=== PATIENT | female | born 1965 | race Two or more races ===

== ENCOUNTER 2023-10-18 14:07 | Outpatient (RCR) | payer OTHER, SELFPAY | END 2023-11-16 10:41 | disposition home or self-care (01) | LOC: HO.WCC 14:07 | PROVIDERS: PCP Internal Medicine; Visit Provider Surgery | DX: E11.621 Type 2 diabetes mellitus with foot ulcer (principal); L97.522 Non-pressure chronic ulcer of other part of left foot with fat layer exposed; E11.40 Type 2 diabetes mellitus with diabetic neuropathy, unspecified; E11.649 Type 2 diabetes mellitus with hypoglycemia without coma; L84 Corns and callosities; Q66.92 Congenital deformity of feet, unspecified, left foot; Z79.4 Long term (current) use of insulin; Z87.891 Personal history of nicotine dependence | CPT/HCPCS: 11042; 99212; 99213 ==